=== PATIENT | female | born 1975 | race Caucasian/White ===

== ENCOUNTER 2016-11-11 09:41 | Emergency (ER) | payer OTHER ==
[~2016-11-11] VITALS: Ht 167.6 cm; Wt 71.1 kg
[~2016-11-11 09:41] MED LIST: HYDR-4003 PO; IBUP800T28 PO
[2016-11-11 09:45] VITALS: BP 180/90; PULSE 75; RESP 14; O2SAT 100
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
[2016-11-11] MEDS ORDERED: LORazepam 0.5 mg Tablet PO ONE (10:00)
--- NOTE | 2016-11-11 10:42 | DRSVH ---
PROCEDURE: X-RAY CHEST ONE VIEW, PORTABLE ([id number]) INDICATIONS: bilateral face numbness, hypertension TECHNIQUE: One view of the chest was acquired. COMPARISON: None. FINDINGS: Surgical changes and devices: None. Lungs and pleura: No pleural effusions or pneumothorax. Lungs are clear. Mediastinum: Mediastinal contours appear normal. Heart size is normal. Bones and chest wall: No suspicious bony lesions. Overlying soft tissues appear unremarkable. IMPRESSION: No acute cardiothymic disease. Dictated by: Jess Mueller M.D. on 11/11/2016 at 10:40 Approved by: Jess Mueller M.D. on 11/11/2016 at 10:40
[2016-11-11 11:28] LABS: BASOPHILS % (AUTO) 0.3 % (0-3); EOSINOPHILS % (AUTO) 0.7 % (0-5); MONOCYTES % (AUTO) 2.9 % (4-12); Mean Corpuscular Hemoglobin 28.7 pg (27.0-35.0); Mean Corpuscular Volume 86.9 fL (81-100); NEUTROPHILS % (AUTO) 80.2 % (40-74); Platelet Count 262 bil/L (150-400)
[2016-11-11 11:59] LABS: TROPONIN T 0.01 ug/L (0.0-0.011)
[2016-11-11 12:04] VITALS: BP 153/96; PULSE 69; RESP 16; O2SAT 100
[2016-11-11 12:10] LABS: Magnesium 2.4 mg/dL (1.6-2.6)
[2016-11-11 13:11] VITALS: BP 161/97; PULSE 97; RESP 18; O2SAT 100
[2016-11-11] MEDS ORDERED: HYDR25TA4 PO (13:14)
[2016-11-11] MEDS ORDERED: LORA0.5T PO (13:14)
== END 2016-11-11 13:19 | disposition home or self-care (01) ==
LOC: SED 09:41
DX: R03.0 Elevated blood-pressure reading, without diagnosis of hypertension (principal); F41.9 Anxiety disorder, unspecified; F43.0 Acute stress reaction; R20.0 Anesthesia of skin